=== PATIENT | female | born 1975 | race Hispanic/Latino ===

== ENCOUNTER 2018-08-10 18:45 | Emergency (ER) | payer BC ==
[2018-08-10] MEDS ORDERED: ONDANSETRON ODT 4 MG TAB ONE (19:52)
[2018-08-10 20:05] LABS: BASOPHILS % (AUTO) 0.3 % (0.0-5.0); EOSINOPHILS % (AUTO) 0.4 % (0.0-8.0); HEMATOCRIT 36.8 % (36-48); LYMPHOCYTES % (AUTO) 12.9 % (21.0-51.0); MEAN CORPUSCULAR HEMOGLOBIN 29.3 pg (27.0-33.0); MEAN CORPUSCULAR HGB CONC 34.3 g/dL (32.0-36.0); MEAN CORPUSCULAR VOLUME 85.6 fL (79-99); MONOCYTES % (AUTO) 6.1 % (3.0-13.0); NEUTROPHILS % (AUTO) 80.3 % (40.0-77.0); PLATELET COUNT (AUTO) 230 K/uL (130-400); RED CELL DISTRIBUTION WIDTH 13.5 % (11.0-15.5); WHITE BLOOD COUNT (AUTO) 7.5 K/uL (4.8-10.8)
[2018-08-10 20:09] LABS: APPEARANCE,URINE Clear (CLEAR); BILIRUBIN,URINE Negative (NEGATIVE); COLOR,URINE Yellow (YELLOW); GLUCOSE, URINE (UA) Negative (NEGATIVE); KETONES,URINE >=160 mg/dL (NEGATIVE); LEUKOCYTE ESTERASE ,URINE Negative (NEGATIVE); NITRATE,URINE Negative (NEGATIVE); OCCULT BLOOD,URINE Negative (NEGATIVE); PROTEIN,URINE Trace (NEGATIVE)
[2018-08-10 20:11] LABS: HCG,QUAL RESULT NEGATIVE (NEGATIVE)
[2018-08-10 20:27] LABS: CREATININE 0.7 mg/dL (0.5-1.5); POTASSIUM 4.1 mmol/L (3.5-5.1)
[2018-08-10 20:32] LABS: BILIRUBIN,TOTAL 0.7 mg/dL (0.2-1.0); TOTAL PROTEIN, SERUM 7.8 g/dL (6.0-8.3)
[2018-08-10 20:34] LABS: BACTERIA,URINE None Seen /HPF (None Seen); MUCUS,URINE Few LPF (None Seen); RBC,URINE None Seen /HPF (0-1); SQUAMOUS EPITHELIAL CELL,UR Few /HPF (0-2); WBC,URINE None Seen /HPF (0-1)
[2018-08-10] MEDS ORDERED: METOCLOPRAMIDE 10 MG/2 ML VIAL ONE (20:34)
[2018-08-10] MEDS ORDERED: SODIUM CHLORIDE 0.9% 1000ML 1,000 ML IV ONE (20:34)
== END 2018-08-10 21:18 | disposition home or self-care (01) ==
LOC: EDH 18:45
DX: R11.2 Nausea with vomiting, unspecified (principal)
CPT/HCPCS: 36415; 80053; 81001; 81025; 83690; 85025; 96361; 96374; 99284; J2765; J7030

== ENCOUNTER 2018-08-29 12:06 | Emergency (ER) | payer BC ==
[2018-08-29 12:39] LABS: BASOPHILS % (AUTO) 0.6 % (0.0-5.0); HEMATOCRIT 38.2 % (36-48); LYMPHOCYTES % (AUTO) 33.6 % (21.0-51.0); MEAN CORPUSCULAR HEMOGLOBIN 28.6 pg (27.0-33.0); MEAN CORPUSCULAR HGB CONC 33.2 g/dL (32.0-36.0); MEAN CORPUSCULAR VOLUME 86.1 fL (79-99); MONOCYTES % (AUTO) 8.1 % (3.0-13.0); NEUTROPHILS % (AUTO) 52.7 % (40.0-77.0); NUCLEATED RED BLOOD CELLS 0.1 % (0.0-0.19); PLATELET COUNT (AUTO) 189 K/uL (130-400); RED BLOOD CELL COUNT(AUTO) 4.44 MIL/uL (4.00-5.50); RED CELL DISTRIBUTION WIDTH 12.8 % (11.0-15.5); WHITE BLOOD COUNT (AUTO) 3.9 K/uL (4.8-10.8)
[2018-08-29] MEDS ORDERED: ASPIRIN 325 MG TABLET ONE (12:50)
[2018-08-29 12:53] LABS: CREATININE 0.6 mg/dL (0.5-1.5)
[2018-08-29 12:56] LABS: INR 0.96 (0.85-1.15); PARTIAL THROMBOPLASTIN TIME 26.4 SEC (26.3-35.5); PROTHROMBIN TIME 10.1 SEC (9.6-11.6)
[2018-08-29 13:04] LABS: ALBUMIN 4.1 g/dL (3.5-5.0); BILIRUBIN,TOTAL 0.5 mg/dL (0.2-1.0); TOTAL PROTEIN, SERUM 7.5 g/dL (6.0-8.3)
== END 2018-08-29 14:32 | disposition home or self-care (01) ==
LOC: EDH 12:06
DX: R07.89 Other chest pain (principal); F41.9 Anxiety disorder, unspecified; M79.7 Fibromyalgia
CPT/HCPCS: 36415; 71045; 80053; 82550; 83874; 84484; 85025; 85610; 85730; 93005

== ENCOUNTER 2023-03-13 20:47 | Observation (INO) | payer BC ==
[~2023-03-13] VITALS: Ht 160 cm; Wt 63.5 kg
[2023-03-13] MEDS ORDERED: 0.9%NACL 1000ML 1,000 ML IV ONE (21:00)
[2023-03-13] MEDS ORDERED: MORPHINE 4 MG SYG IVP ONE (21:00)
[2023-03-13] MEDS ORDERED: ONDANSETRON 4MG INJ IVP ONE (21:00)
[2023-03-13 21:45] LABS: BASOPHILS % (AUTO) 0.2 % (0.0-5.0); EOSINOPHILS % (AUTO) 0.8 % (0.0-8.0); HEMATOCRIT 39.2 % (36-48); LYMPHOCYTES % (AUTO) 19.3 % (21.0-51.0); MEAN CORPUSCULAR HEMOGLOBIN 26.3 pg (27.0-33.0); MEAN CORPUSCULAR HGB CONC 31.9 g/dL (32.0-36.0); MEAN CORPUSCULAR VOLUME 82.4 fL (79-99); MONOCYTES % (AUTO) 7.3 % (3.0-13.0); NEUTROPHILS % (AUTO) 72.1 % (40.0-77.0); PLATELET COUNT (AUTO) 254 K/uL (130-400); RED BLOOD CELL COUNT(AUTO) 4.76 MIL/uL (4.00-5.50); RED CELL DISTRIBUTION WIDTH 13.5 % (11.0-15.5); WHITE BLOOD COUNT (AUTO) 8.8 K/uL (4.8-10.8)
[2023-03-13] MEDS ORDERED: 0.9%NACL 50ML IV SCH (22:00)
[2023-03-13] MEDS ORDERED: MORPHINE 2 MG SYG IVP ONE (22:00)
[2023-03-13 22:07] LABS: CREATININE 0.7 mg/dL (0.5-1.5); POTASSIUM 3.2 mmol/L (3.5-5.1)
[2023-03-13] MEDS: ZOSYN 3.375GM +NS 50ML IVPB SCH (22:07)
[2023-03-13 22:17] LABS: ALBUMIN 4.4 g/dL (3.5-5.0); TOTAL PROTEIN, SERUM 8.1 g/dL (6.0-8.3)
[2023-03-13] MEDS ORDERED: HYDROMORPHONE 0.5 MG SYG (0.5MG/0.5ML) IVP ONE (22:30)
[2023-03-13] MEDS ORDERED: KETOROLAC 15MG/ML VIAL (15MG/ML) IV ONE (22:30)
[2023-03-13] MEDS ORDERED: MORPHINE 2 MG SYG IVP PRN (23:00)
[2023-03-13] MEDS ORDERED: ACETAMINOPHEN 650 MG SUPPOSITORY RC PRN (23:00)
[2023-03-13] MEDS ORDERED: HYDRALAZINE 20MG/ML VIAL IV PRN (23:00)
[2023-03-13] MEDS ORDERED: ALBUTEROL 0.083% 2.5 MG/3 ML INH IH PRN (23:00)
[2023-03-13] MEDS ORDERED: POTASSIUM CHLORIDE 10MEQ/100ML 10 MEQ/100 ML ML IV ONE (23:00)
[2023-03-13] MEDS: LACTATED RINGERS 1000ML 1,000 ML IV SCH (23:44)
[2023-03-14] VITALS (23 sets, daily range): BP systolic 117–147; BP diastolic 68–97; PULSE 64–90; RESP 14–20
[2023-03-14] MEDS ORDERED: PANT40TA54 PO (03:48)
[2023-03-14] MEDS ORDERED: SUCR1TAB28 PO (03:48)
[2023-03-14] MEDS: ZOSYN 3.375GM +NS 50ML IVPB SCH ×3 (05:57→22:02)
[2023-03-14 06:20] LABS: BASOPHILS % (AUTO) 0.3 % (0.0-5.0); EOSINOPHILS % (AUTO) 0.8 % (0.0-8.0); HEMATOCRIT 36.4 % (36-48); LYMPHOCYTES % (AUTO) 29.8 % (21.0-51.0); MEAN CORPUSCULAR HEMOGLOBIN 26.5 pg (27.0-33.0); MEAN CORPUSCULAR HGB CONC 31.9 g/dL (32.0-36.0); MEAN CORPUSCULAR VOLUME 83.1 fL (79-99); MONOCYTES % (AUTO) 9.7 % (3.0-13.0); NEUTROPHILS % (AUTO) 59.2 % (40.0-77.0); PLATELET COUNT (AUTO) 226 K/uL (130-400); RED BLOOD CELL COUNT(AUTO) 4.38 MIL/uL (4.00-5.50); RED CELL DISTRIBUTION WIDTH 13.5 % (11.0-15.5); WHITE BLOOD COUNT (AUTO) 6.2 K/uL (4.8-10.8)
[2023-03-14 06:33] LABS: INR 1.02 (0.85-1.15); PROTHROMBIN TIME 11.1 SEC (9.6-11.6)
[2023-03-14 06:35] LABS: PARTIAL THROMBOPLASTIN TIME 27.3 SEC (26.3-35.5)
[2023-03-14 06:36] LABS: CREATININE 0.7 mg/dL (0.5-1.5); MAGNESIUM 1.8 mg/dL (1.80-2.40); PHOSPHORUS 2.9 mg/dL (2.5-4.9); POTASSIUM 3.7 mmol/L (3.5-5.1)
[2023-03-14] MEDS: FAMOTIDINE 20MG VIAL IV SCH ×2 (09:10→20:02)
[2023-03-14] MEDS ORDERED: CEFAZOLIN SODIUM 1 GM VIAL ONE (09:52)
[2023-03-14] MEDS ORDERED: LIDOCAINE 1%-EPI 1:100,000 20 ML VIAL IJ ONE ×3 (09:52→11:57)
[2023-03-14] MEDS ORDERED: BUPIVACAINE/PF 0.25% 30ML VIAL IJ ONE ×3 (09:52→11:57)
[2023-03-14] MEDS ORDERED: LIDOCAINE PF 100MG/5ML (2%) SYRINGE 5ML ONE (10:11)
[2023-03-14] MEDS ORDERED: PROPOFOL 10 MG/ML 20ML VIAL IV ONE (10:11)
[2023-03-14] MEDS ORDERED: MIDAZOLAM HCL 1 MG/ML 2ML VIAL ONE (10:12)
[2023-03-14] MEDS ORDERED: FENTANYL CITRATE PF 50 MCG/1 ML 2ML VIAL ONE (10:12)
[2023-03-14] MEDS ORDERED: ROCURONIUM 10MG/1ML SYR 10 MG/ML ML ONE ×2 (10:12→11:06)
[2023-03-14] MEDS ORDERED: ONDANSETRON 4MG INJ ONE (10:22)
[2023-03-14] MEDS ORDERED: DEXAMETHASONE SOD PHOSPHATE 10MG/ML 1ML VIAL ONE (10:22)
[2023-03-14] MEDS ORDERED: CEFAZOLIN SODIUM 1 GM VIAL IRRIG ONE (10:50)
[2023-03-14] MEDS ORDERED: GLYCOPYRROLATE 1 MG/5 ML SYRINGE ONE (11:32)
[2023-03-14] MEDS ORDERED: NEOSTIGMINE 5MG/5ML SYR IV ONE (11:32)
[2023-03-14] MEDS ORDERED: MEPERIDINE-PF 25 MG/ML SYG ONE ×2 (12:20→12:30)
[2023-03-14] MEDS: LACTATED RINGERS 1000ML 1,000 ML IV SCH (13:20)
[2023-03-14] MEDS: ONDANSETRON 4MG INJ IVP PRN ×2 (13:51→19:48)
[2023-03-14] MEDS: HYDROMORPHONE 1 MG INJ IVP PRN ×2 (17:00→20:03)
[2023-03-15] MEDS: ONDANSETRON 4MG INJ IVP PRN ×2 (01:25→07:32)
[2023-03-15] MEDS: HYDROMORPHONE 1 MG INJ IVP PRN (01:41)
[2023-03-15 03:33] VITALS: BP 108/70; PULSE 76; RESP 20
[2023-03-15] MEDS: LACTATED RINGERS 1000ML 1,000 ML IV SCH (06:41)
[2023-03-15] MEDS: ZOSYN 3.375GM +NS 50ML IVPB SCH ×2 (06:41→13:52)
[2023-03-15 07:04] LABS: BASOPHILS % (AUTO) 0.1 % (0.0-5.0); HEMATOCRIT 34.4 % (36-48); LYMPHOCYTES % (AUTO) 10.8 % (21.0-51.0); MEAN CORPUSCULAR HEMOGLOBIN 26.9 pg (27.0-33.0); MEAN CORPUSCULAR VOLUME 84.1 fL (79-99); MONOCYTES % (AUTO) 8.1 % (3.0-13.0); NEUTROPHILS % (AUTO) 80.5 % (40.0-77.0); PLATELET COUNT (AUTO) 215 K/uL (130-400); RED BLOOD CELL COUNT(AUTO) 4.09 MIL/uL (4.00-5.50); RED CELL DISTRIBUTION WIDTH 13.7 % (11.0-15.5); WHITE BLOOD COUNT (AUTO) 12.1 K/uL (4.8-10.8)
[2023-03-15 07:11] VITALS: BP 114/69; PULSE 75; RESP 20
[2023-03-15 07:16] LABS: CREATININE 0.7 mg/dL (0.5-1.5); MAGNESIUM 1.7 mg/dL (1.80-2.40); POTASSIUM 3.3 mmol/L (3.5-5.1); TOTAL PROTEIN, SERUM 7.3 g/dL (6.0-8.3)
[2023-03-15] MEDS: OXYCODONE/ACETAMIN 5/325MG TAB PO PRN ×2 (07:36→11:32)
[2023-03-15] MEDS: FAMOTIDINE 20MG VIAL IV SCH (07:41)
[2023-03-15] MEDS ORDERED: PHARMACY COMMUNICATION MISC SCH (11:00)
[2023-03-15 11:18] VITALS: BP 123/69; PULSE 77; RESP 20
[2023-03-15] MEDS: POTASSIUM CHLORIDE 10% ELIXIR 20 MEQ/15 ML UDCUP PO SCH ×2 (11:29→13:52)
[2023-03-15] MEDS ORDERED: SUCRALFATE 1 GM TABLET PO SCH (11:30)
[2023-03-15] MEDS ORDERED: BISACODYL 10 MG SUPP.RECT RC PRN (15:30)
[2023-03-15 15:45] VITALS: BP 98/69; PULSE 78; RESP 20
[2023-03-15 15:45] LABS: HEMATOCRIT 32.2 % (36-48); MEAN CORPUSCULAR HGB CONC 31.4 g/dL (32.0-36.0); MEAN CORPUSCULAR VOLUME 82.8 fL (79-99); RED BLOOD CELL COUNT(AUTO) 3.89 MIL/uL (4.00-5.50); RED CELL DISTRIBUTION WIDTH 13.8 % (11.0-15.5); WHITE BLOOD COUNT (AUTO) 9.2 K/uL (4.8-10.8)
[2023-03-15 16:02] LABS: ALBUMIN 3.8 g/dL (3.5-5.0); CREATININE 0.8 mg/dL (0.5-1.5); POTASSIUM 4.4 mmol/L (3.5-5.1); TOTAL PROTEIN, SERUM 6.8 g/dL (6.0-8.3)
[2023-03-15] MEDS ORDERED: BISA10SU61 RC (17:55)
[2023-03-16] MEDS ORDERED: PANTOPRAZOLE 40 MG TAB DR PO SCH (09:00)
== END 2023-03-15 18:20 | disposition home or self-care (01) ==
LOC: EDH 20:47 → EDHIP 22:47 → WSH 03-14 13:10
PROVIDERS: ADMIT Internal Medicine Critical Care Medicine; ATTEND Internal Medicine Critical Care Medicine
DX: K80.00 Calculus of gallbladder with acute cholecystitis without obstruction (principal); Z20.822 Contact with and (suspected) exposure to COVID-19; K82.8 Other specified diseases of gallbladder; E87.6 Hypokalemia; K29.70 Gastritis, unspecified, without bleeding; Z79.899 Other long term (current) drug therapy
CPT/HCPCS: 96376 ×3; 96361; 96365; 96366 ×3; 96375 ×2; 96368; 99285; 84484; 80053 ×3; 83690; 85025 ×3; 83605; 36415 ×3; 74176; 76705; 47562; 83735 ×2; 84100; 80048; 84703; 85610; 85730; 87635; 85027; G0378 ×40; J7120 ×2; J2270 ×3; J7030 ×2; J2405 ×6; J2543 ×6; J1170 ×4; A4510; A4600 ×2; A4452; J3490 ×8; J3010; J0690 ×2; J1100; J2710; J2001; J2250; J2704; J2175 ×2; C9250; C1769 ×3; A4649 ×5; A4930; A4223; A4222; A4216; J3480

== ENCOUNTER → 2024-03-04 | Outpatient (CLI) | payer BC ==
[~2024-03-04] MED LIST: BISA10SU61 RC; PANT40TA54 PO; SUCR1TAB28 PO
== END | disposition home or self-care (01) ==
LOC: RAH 10:59
PROVIDERS: ATTEND Family Medicine
DX: E07.9 Disorder of thyroid, unspecified (principal)
CPT/HCPCS: 76536